=== PATIENT | male | born 1950 | race Caucasian/White ===

== ENCOUNTER → 2017-05-17 | Outpatient (CLI) | payer MEDICAID ==
--- NOTE | 2017-05-18 07:22 | XR ---
EXAMINATION TYPE: XR knee complete bilateral , 6 VIEWS DATE OF EXAM ORDERED: 05/17/2017 HISTORY: S80.00XS contusion of both knees. COMPARISON: None. FINDINGS: There is mild medial joint space loss bilaterally. There is no chondrocalcinosis. There ar e mild remodeling changes in the patellofemoral joints bilaterally. No acute osseous lesion is seen. No joint effusion is seen. IMPRESSION: CHANGES CONSISTENT WITH OSTEOARTHRITIS.
== END ==
LOC: RADXRMAIN 15:47
PROVIDERS: ATTEND Emergency Medicine
DX: S80.02XA Contusion of left knee, initial encounter (principal); S80.01XA Contusion of right knee, initial encounter

== ENCOUNTER → 2017-05-28 | Outpatient (CLI) | payer MEDICAID ==
[2017-05-28 08:21] LABS: CHCM 33.3; HCT 45.7 % (39.0-53.0); HDW 2.63; HGB 14.8 gm/dL (13.0-17.5); MCH 29.2 pg (25.0-35.0); MCHC 32.3 g/dL (31.0-37.0); MCV 90.4 fL (80.0-100.0); Mean Platelet Volume 7.3; RBC 5.06 m/uL (4.30-5.90); RDW 13.6 % (11.5-15.5); WBC 4.6 k/uL (3.8-10.6)
[2017-05-28 08:22] LABS: ALT 55 U/L (21-72); AST 27 U/L (17-59); Alkaline Phosphatase 71 U/L (38-126); Anion Gap 11 mmol/L; Bilirubin, Delta 0.2 mg/dL (0.0-0.2); Blood Urea Nitrogen 26 mg/dL (9-20); Carbon Dioxide 28 mmol/L (22-30); Chloride 107 mmol/L (98-107); Cholesterol 190 mg/dL (<200); Glucose 104 mg/dL (74-99); HDL Cholesterol 44 mg/dL (40-60); Non-African American GFR(MDRD) >60 (>60 ml/min/1.73 sqM); Potassium 4.4 mmol/L (3.5-5.1); Sodium 146 mmol/L (137-145); Total Bilirubin 0.6 mg/dL (0.2-1.3); Total Protein 6.9 g/dL (6.3-8.2); Triglycerides 121 mg/dL (<150)
== END | disposition home or self-care (01) ==
LOC: LABWHC1 07:39
PROVIDERS: ATTEND Emergency Medicine
DX: E78.5 Hyperlipidemia, unspecified (principal); D64.9 Anemia, unspecified
CPT/HCPCS: 36415; 80051; 80061; 80076; 82565; 82947; 84520; 85027; 86308

== ENCOUNTER → 2017-06-02 | Outpatient (CLI) | payer MEDICAID ==
[2017-06-02 13:12] LABS: C Reactive Protein 8.6 mg/L (<10.0)
[2017-06-02 15:12] LABS: Hepatitis B Surface Antibody Negative (Negative)
[2017-06-02 16:26] LABS: Mumps Virus IgG Ab Interp POSITIVE (NEGATIVE); Rubeola (Measles) IgG 5.9 AI
== END | disposition home or self-care (01) ==
LOC: LABWHC1 10:25
PROVIDERS: ATTEND Emergency Medicine
DX: Z00.00 Encounter for general adult medical examination without abnormal findings (principal)
CPT/HCPCS: 86762; 86140; 86706; 86708; 86704; 86735; 86765; 36415; G0103

== ENCOUNTER → 2018-08-05 | Outpatient (CLI) | payer MEDICAID ==
[2018-08-05 10:52] LABS: HCT 44.8 % (39.0-53.0); HGB 14.5 gm/dL (13.0-17.5); MCH 28.6 pg (25.0-35.0); MCHC 32.4 g/dL (31.0-37.0); MCV 88.3 fL (80.0-100.0); Platelet Count 207 k/uL (150-450); RBC 5.07 m/uL (4.30-5.90); RDW 12.8 % (11.5-15.5); WBC 4.4 k/uL (3.8-10.6)
[2018-08-05 12:04] LABS: Bilirubin, Delta 0.2 mg/dL (0.0-0.2); Bilirubin,Unconjugated 0.3 mg/dL (0.0-1.1); Total Bilirubin 0.5 mg/dL (0.2-1.3); Total Protein 6.7 g/dL (6.3-8.2)
[2018-08-05 12:23] LABS: Prostate Specific Antigen 1.37 ng/mL (0.00-4.00)
[2018-08-05 18:38] LABS: Hemoglobin A1C 5.6 % (4.0-6.0)
== END | disposition home or self-care (01) ==
LOC: LABWHC1 09:35
PROVIDERS: ATTEND Emergency Medicine
DX: E78.5 Hyperlipidemia, unspecified (principal)
CPT/HCPCS: 36415; 80061; 80076; 83036; 84153; 85027

== ENCOUNTER → 2019-03-22 | Outpatient (CLI) | payer MEDICAID ==
[2019-03-22 11:38] LABS: HGB 14.9 gm/dL (13.0-17.5); MCH 28.2 pg (25.0-35.0); MCHC 31.6 g/dL (31.0-37.0); MCV 89.2 fL (80.0-100.0); Mean Platelet Volume 6.6; Platelet Count 207 k/uL (150-450); RBC 5.28 m/uL (4.30-5.90); WBC 3.6 k/uL (3.8-10.6)
[2019-03-22 19:16] LABS: Vitamin D 25 Hydroxy 28.9 ng/mL (30.0-100.0)
[2019-03-22 20:12] LABS: Albumin 4.5 g/dL (3.80-4.90); Albumin/Globulin Ratio 2.25 (1.60-3.17); Bilirubin, Conjugated 0.2 mg/dL (0.20-0.40); Bilirubin,Unconjugated 0.5 mg/dL; Total Bilirubin 0.7 mg/dL (0.2-1.2); Total Protein 6.5 g/dL (6.2-8.2)
== END | disposition home or self-care (01) ==
LOC: LABWHC1 09:59
PROVIDERS: ATTEND Emergency Medicine
DX: E78.5 Hyperlipidemia, unspecified (principal)
CPT/HCPCS: 36415; 80061; 80076; 82306; 82565; 82607; 82947; 84153; 84520; 85027

== ENCOUNTER → 2020-04-03 | Outpatient (CLI) | payer MEDICAID ==
[2020-04-03 11:53] LABS: HCT 45.3 % (39.0-53.0); HGB 14.7 gm/dL (13.0-17.5); MCH 29.7 pg (25.0-35.0); MCHC 32.4 g/dL (31.0-37.0); MCV 91.7 fL (80.0-100.0); Mean Platelet Volume 7.3; Platelet Count 188 k/uL (150-450); RBC 4.94 m/uL (4.30-5.90); RDW 13.1 % (11.5-15.5); WBC 4.1 k/uL (3.8-10.6)
[2020-04-03 18:01] LABS: African American GFR (CKD) 70.1 (60.0-200.0); Albumin 4.5 g/dL (3.80-4.90); Albumin/Globulin Ratio 2.37 (1.60-3.17); Bilirubin, Conjugated 0.3 mg/dL (0.20-0.40); Bilirubin,Unconjugated 0.7 mg/dL; Chol/HDL Ratio 4.21; Globulin 1.9 g/dL (1.6-3.3); LDL Cholesterol,Calculated 119.4 mg/dL (0.0-131.0); Non-African American GFR(CKD) 60.5 (60.0-200.0); Total Protein 6.4 g/dL (6.2-8.2); VLDL Calculation 18.6 mg/dL (5.00-40.00)
[2020-04-03 19:08] LABS: Hemoglobin A1C 5.8 % (4.0-6.0)
== END | disposition home or self-care (01) ==
LOC: LABWHC1 10:38
PROVIDERS: ATTEND Emergency Medicine
DX: E78.5 Hyperlipidemia, unspecified (principal)
CPT/HCPCS: 36415; 80061; 80076; 82565; 82947; 83036; 84153; 84403; 84520; 85027